=== PATIENT | male | born 1950 | race Caucasian/White ===

== ENCOUNTER 2017-08-08 23:30 | Emergency (ER) | payer OTHER ==
[2017-08-09] MEDS: LORAZEPAM 1 MG TAB PO (00:51)
[2017-08-09] MEDS: METOCLOPRAMIDE 10 MG INJ IM (00:51)
== END 2017-08-09 01:55 | disposition home or self-care (01) ==
LOC: FTE 23:30
DX: R06.6 Hiccough (principal)
CPT/HCPCS: 96372; 99284-25; J2765

== ENCOUNTER 2018-09-12 12:27 | Day surgery (SDC) | payer OTHER ==
[2018-09-12] MEDS ORDERED: MIDAZOLAM 1 MG/ML 2 ML INJ ×3 (15:36)
[2018-09-12] MEDS ORDERED: FENTAnyl 50 MCG/ML VIAL (15:36)
== END 2018-09-12 15:56 | disposition home or self-care (01) ==
LOC: GIL 12:27
DX: Z12.11 Encounter for screening for malignant neoplasm of colon (principal); D12.5 Benign neoplasm of sigmoid colon; K64.8 Other hemorrhoids
CPT/HCPCS: 45385; 88305